=== PATIENT | female | born 1970 | race Caucasian/White ===

== ENCOUNTER → 2018-02-15 | Outpatient (CLI) | payer BC ==
[~2018-02-15] MED LIST: BENTYL10 MG PO; BIRTH CONTROL PO; IOPAMIDOL 370 MG/ML 200 ML INFUS..BTL INJ ONE; KLONOPIN0.5 MG PO; PANTOPRAZOLE SO40 MG PO; SODIUM CHLORIDE 0.9% 50ML 50 ML ONE; WELLBUTRIN SR150 MG PO
--- NOTE | 2018-02-15 17:59 | Diagnostic Imaging Report ---
EXAM: CT Chest WITH contrast 02/15/2018 3:37 PM INDICATION: Shortness of breath, pain in the left side of the chest after trauma in October. COMPARISON: None TECHNIQUE: Chest was scanned utilizing a multidetector helical scanner from the lung apex through the level of the adrenal glands without administration of IV contrast. Coronal and sagittal reformations were obtained. Pulmonary embolism protocol was performed. IV CONTRAST: 100 mL of Omnipaque 300 RADIATION DOSE: Total DLP: 509.80 mGy*cm Estimated effective dose: (DLP x 0.014 x size factor) mSv COMPLICATIONS: None FINDINGS: LINES/ TUBES: None. LUNGS AND AIRWAYS: Defects within the pulmonary arteries to the segmental level. Airways are normal. PLEURA: The pleural spaces are clear. HEART AND MEDIASTINUM: The thyroid gland is normal. No mediastinal, hilar or axillary lymphadenopathy. The heart is normal in size.. There is no pericardial effusion. UPPER ABDOMEN: Limited non-contrast views of the upper abdomen show no abnormality within the visualized liver, spleen, pancreas, or kidneys. The adrenal glands are normal. BONES: Subacute to chronic fracture of the lateral left sixth rib with surrounding callus formation; fracture line is still visible. SOFT TISSUES: Unremarkable. IMPRESSION: 1. Subacute to chronic partially healed fracture of the lateral left sixth rib. 2. No pulmonary embolism per clinical query. Signed by: Dr. Lloyd Weiss M.D. on 02/15/2018 5:56 PM
== END | disposition home or self-care (01) ==
LOC: CT 15:29
PROVIDERS: ATTEND Internal Medicine
DX: R06.02 Shortness of breath (principal); I27.82 Chronic pulmonary embolism; S22.32XD Fracture of one rib, left side, subsequent encounter for fracture with routine healing
CPT/HCPCS: 71260; 81025; Q9967

== ENCOUNTER → 2018-04-01 | Day surgery (SDC) | payer BC ==
[~2018-04-01] MED LIST changes: +ARMOUR THYROID60 MG PO; +FENTANYL CITRATE/PF 100MCG/2 ML INJ ONE; -IOPAMIDOL 370 MG/ML 200 ML INFUS..BTL INJ ONE; +KLONOPIN0.5 MG; +LIDOCAINE HCL 2% LOCAL INJ 5 ML SDV VIAL INJ ONE; +MIDAZOLAM HCL 2 MG/2 ML VIAL ONE; +PROGESTERONE100 MG; +PROPOFOL IV EMULSION 10 MG/ML 50 ML VIAL ONE; -SODIUM CHLORIDE 0.9% 50ML 50 ML ONE
--- NOTE | 2018-04-01 11:25 | Operative Report ---
DATE OF PROCEDURE: April 01, 2018 REFERRING PHYSICIAN: Dr. Jordin Mcconnell. PROCEDURE PERFORMED: Colonoscopy and polypectomy note with biopsies. INDICATIONS FOR COLONOSCOPY: Colorectal cancer screening, personal history of colon polyps. MEDICATION: Patient was done under MAC. Please see anesthesiologist's note. PROCEDURE: With patient in left lateral decubitus position, flexible fiberoptic Olympus colonoscope was inserted into the rectum with ease and advanced all the way to the cecum. It was then withdrawn slowly. Mucosa overlying the cecum, ascending colon, transverse colon, descending colon, sigmoid colon appeared to be within normal limits. Two minute polyps were hot biopsied from the rectum. The scope was then retroflexed into the distal rectum and a large hypertrophic anal papillae was noted and that was biopsied. Also, some small internal hemorrhoids were noted. The scope was then straightened out. It was subsequently withdrawn. Patient tolerated the procedure well. IMPRESSIONS 1. Rectal polyps times 2, hot biopsied. 2. Large hypertrophic anal papilla, biopsied. 3. Internal hemorrhoids, none actively bleeding. PLAN: Follow up histology. Initiate high-fiber, low-fat diet. Initiate high-fiber supplement. Patient might benefit from a followup colonoscopy in 3 years. Job#: [id number] TA cc:JORDIN MCCONNELL MD
== END | disposition home or self-care (01) ==
LOC: OR 08:55
PROVIDERS: ATTEND Internal Medicine Gastroenterology
DX: Z12.11 Encounter for screening for malignant neoplasm of colon (principal); K62.1 Rectal polyp; K62.89 Other specified diseases of anus and rectum; K64.8 Other hemorrhoids; G47.9 Sleep disorder, unspecified; E03.9 Hypothyroidism, unspecified; N20.0 Calculus of kidney; Z88.3 Allergy status to other anti-infective agents
CPT/HCPCS: 45380; 45384; 81025; J2001; J2250

== ENCOUNTER → 2018-07-11 | Day surgery (SDC) | payer BC ==
[~2018-07-11] MED LIST changes: -KLONOPIN0.5 MG; -LIDOCAINE HCL 2% LOCAL INJ 5 ML SDV VIAL INJ ONE; +MULTI-VITAMIN1 EACH PO; -PROGESTERONE100 MG; +PROGESTERONE100 MG PO; +PROPOFOL IV EMULSION 10 MG/ML 20 ML VIAL IV ONE; -PROPOFOL IV EMULSION 10 MG/ML 50 ML VIAL ONE
[2018-07-11 08:40] VITALS: BP 114/63
--- NOTE | 2018-07-11 08:57 | Operative Report ---
DATE OF PROCEDURE: July 11, 2018 REFERRING PHYSICIAN: Dr. Jordin Mcconnell PROCEDURE PERFORMED: Esophagogastroduodenoscopy with esophageal dilatation and biopsies. INDICATIONS FOR EGD: Dysphagia to solids, nausea and bloating. MEDICATION: Patient was done under MAC. Please see anesthesiologist's note. PROCEDURE: With the patient in the left lateral decubitus position, the flexible fiberoptic Olympus gastroscope was introduced into the esophagus under direct visualization without any difficulty. There was some patchy erythema noted in the distal esophagus. A minute nodule was noted at the GE junction that was biopsied. The esophagus was then dilated to size 52-Frisian Murphy. The scope was then advanced with ease into the stomach. Mucosa overlying the antrum and the body revealed some patchy erythema and mild to moderate edema, and biopsies were obtained sent to stain for H. pylori. The pylorus was of normal contour and shape. It was intubated with ease. The scope was advanced all the way to the 2nd portion of the duodenum. The scope was then withdrawn slowly. Biopsies were obtained from the proximal 2nd portion and the duodenal bulb to rule out sprue. The scope was then withdrawn back into the stomach and retroflexed. The mucosa overlying the fundus and the cardia appeared to be within normal limits. The scope was then straightened out. It was subsequently withdrawn. Patient tolerated the procedure well. IMPRESSION 1. Distal esophagitis. 2. Minute nodule, gastroesophageal junction biopsied. 3. Esophagus dilated to size 52-Frisian Murphy. 4. Gastritis, biopsied. 5. Rule out sprue. PLAN: Follow up histology. Initiate Protonix 40 mg 1 p.o. q.a.m. a.c. Job#: [id number] RI cc:JORDIN MCCONNELL MD
== END | disposition home or self-care (01) ==
LOC: OR 06:06
PROVIDERS: ATTEND Internal Medicine Gastroenterology
DX: K20.8 Other esophagitis (principal); K63.5 Polyp of colon; K29.00 Acute gastritis without bleeding; K22.8 Other specified diseases of esophagus; E03.9 Hypothyroidism, unspecified; N20.0 Calculus of kidney; K12.30 Oral mucositis (ulcerative), unspecified; K76.0 Fatty (change of) liver, not elsewhere classified; R53.83 Other fatigue; Z88.1 Allergy status to other antibiotic agents; Z88.2 Allergy status to sulfonamides; Z80.0 Family history of malignant neoplasm of digestive organs
CPT/HCPCS: 43239; 43450; 81025; J2250; J2704

== ENCOUNTER 2020-12-17 19:09 | Emergency (ER) | payer BC ==
[~2020-12-17] VITALS: Ht 157.5 cm; Wt 69.4 kg
[~2020-12-17 19:09] MED LIST changes: -FENTANYL CITRATE/PF 100MCG/2 ML INJ ONE; -MIDAZOLAM HCL 2 MG/2 ML VIAL ONE; -PROPOFOL IV EMULSION 10 MG/ML 20 ML VIAL IV ONE
[2020-12-17] MEDS ORDERED: DONNATAL/LIDOCAINE/MAALOX 30 ML SUSP PO STA (19:40)
[2020-12-17 19:46] LABS: BASOPHILS % 0.5 % (0.0-1.0); EOSINOPHILS # (AUTO) 0.1 (0.0-0.4); EOSINOPHILS % 1.5 % (0.0-6.0); LYMPHOCYTES # (AUTO) 3.7 (1.0-3.2); LYMPHOCYTES % 56.4 % (18.0-39.1); MEAN CORPUSCULAR HEMOGLOBIN 32.7 pg (28-32); MEAN CORPUSCULAR HGB CONC 34.2 g/dL (31-35); MEAN CORPUSCULAR VOLUME 95.7 fL (81-99); MONOCYTES # (AUTO) 0.5 (0.2-0.8); MONOCYTES % 7.2 % (4.4-11.3); NEUTROPHILS # (AUTO) 2.2 (2.1-6.9); NEUTROPHILS % 34.2 % (38.7-80.0); PLATELET COUNT 250 x10e3/uL (140-360); RED BLOOD COUNT 3.97 x10e6/uL (3.6-5.1); RED CELL DISTRIBUTION WIDTH 11.8 % (11.7-14.4)
[2020-12-17 20:05] LABS: ANION GAP 18.2 mmol/L (8-16); CREATININE, SERUM 0.98 mg/dL (0.57-1.11); POTASSIUM 4.2 mmol/L (3.5-5.1)
[2020-12-17 20:23] LABS: LIPASE 36 U/L (8-78)
[2020-12-17 21:27] VITALS: BP 118/67
== END 2020-12-17 21:00 | disposition home or self-care (01) ==
LOC: ER 19:34
DX: R07.89 Other chest pain (principal); K21.9 Gastro-esophageal reflux disease without esophagitis
CPT/HCPCS: 36415; 71045; 80053; 83690; 84484; 85025; 93005; 99283

== ENCOUNTER → 2020-12-28 | Outpatient (CLI) | payer BC | LOC: US 10:23 | PROVIDERS: ATTEND Internal Medicine Gastroenterology | DX: R10.10 Upper abdominal pain, unspecified (principal) | CPT/HCPCS: 76700 ==

== ENCOUNTER → 2021-01-10 | Day surgery (SDC) | payer BC ==
[~2021-01-10] MED LIST changes: +ALLEGRA ALLERG180 MG PO; +B COMPLEX1 EACH PO; +BUSPIRONE HCL10 MG PO; +GLUCAGON FOR INJ 1 MG VIAL ONE; +HYOSCYAMINE SULFATE 0.5 MG/ML INJ ONE; +MIDAZOLAM HCL 2 MG/2 ML VIAL ONE; +PANTOPRAZOLE 40 MG 10ML VIAL ONE; +PEPCID20 MG PO; +PROPOFOL IV EMULSION 10 MG/ML 20 ML VIAL ONE; +SODIUM CHLORIDE 0.9% 50ML 50 ML ONE; +VITAMIN D PO
[2021-01-10 16:25] VITALS: BP 122/99
[2021-01-10 16:51] LABS: WBC,FECAL (FECAL LACTOFERRIN) NEGATIVE (NEGATIVE)
[2021-01-11 12:14] LABS: C DIFFICILE TOXIN A&B AMP PROB NEGATIVE (NEGATIVE)
== END | disposition home or self-care (01) ==
LOC: OR 11:33
PROVIDERS: ATTEND Internal Medicine Gastroenterology
DX: K59.09 Other constipation (principal); K63.5 Polyp of colon; K29.70 Gastritis, unspecified, without bleeding; K20.90 Esophagitis, unspecified without bleeding; K22.4 Dyskinesia of esophagus; K58.9 Irritable bowel syndrome, unspecified; K21.9 Gastro-esophageal reflux disease without esophagitis; K62.89 Other specified diseases of anus and rectum; K64.8 Other hemorrhoids; N20.0 Calculus of kidney; F32.9 Major depressive disorder, single episode, unspecified; F41.9 Anxiety disorder, unspecified; Z88.1 Allergy status to other antibiotic agents; Z88.2 Allergy status to sulfonamides; Z88.8 Allergy status to other drugs, medicaments and biological substances; Z01.812 Encounter for preprocedural laboratory examination; Z20.822 Contact with and (suspected) exposure to COVID-19; Z68.28 Body mass index [BMI] 28.0-28.9, adult; Z80.0 Family history of malignant neoplasm of digestive organs
CPT/HCPCS: 43239; 43450; 45380; 83630; 83993; 87045; 87177; 87328; 87493; C9113; J1610; J1980; J2250; J2704; U0002; 45378

== ENCOUNTER → 2021-03-18 | Outpatient (CLI) | payer BC ==
[~2021-03-18] MED LIST changes: -GLUCAGON FOR INJ 1 MG VIAL ONE; -HYOSCYAMINE SULFATE 0.5 MG/ML INJ ONE; -MIDAZOLAM HCL 2 MG/2 ML VIAL ONE; -PANTOPRAZOLE 40 MG 10ML VIAL ONE; -PROPOFOL IV EMULSION 10 MG/ML 20 ML VIAL ONE; -SODIUM CHLORIDE 0.9% 50ML 50 ML ONE
== END ==
LOC: DX 10:52
PROVIDERS: ATTEND Internal Medicine Gastroenterology
DX: R13.10 Dysphagia, unspecified (principal)
CPT/HCPCS: 74220